=== PATIENT | male | born 1945 | race Caucasian/White ===

== ENCOUNTER 2019-11-10 22:13 | Inpatient (IN) | payer MEDICARE, OTHER ==
[~2019-11-10] VITALS: Ht 180.3 cm; Wt 99.0 kg
[2019-11-10] MEDS ORDERED: LIDOCAINE 2%/EPI 1:100,000 20 ML VIAL. ONE (22:18)
--- NOTE | 2019-11-11 00:28 | RAD ---
STUDY: CT head without contrast INDICATION: Fall. COMPARISON: None. TECHNIQUE: Axial CT imaging through the head without the use of intravenous contrast. Sagittal and coronal reformats were obtained. One or more of the following individualized dose reduction techniques were utilized for this examination: 1. Automated exposure control 2. Adjustment of the mA and/or kV according to patient size 3. Use of iterative reconstruction technique. FINDINGS: No acute intracranial hemorrhage. No mass effect, midline shift or hydrocephalus. White matter findings which are nonspecific but most likely on account of chronic microvascular ischemic change. Intracranial atherosclerotic calcifications. Parenchymal volume loss. Prominent scalp contusion with a degree of laceration centered within the left frontal scalp. Contusive injury extends downward to the superior orbital rim but there are no findings to suggest acute orbital injury. Nodular focus within the left parotid gland appears to represent an ectatic vessel as opposed to a mass. No depressed calvarial fracture. Paranasal sinus mucosal thickening without layering fluid. No mastoid air cells or middle ear opacification. IMPRESSION: 1. Prominent left frontal scalp contusion/laceration without an associated depressed calvarial fracture or acute intracranial hemorrhage. 2. Chronic/senescent findings as above. Electronically signed by: PAULINO JARVIS MD (11/11/2019 12:26 AM) [id number]
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
[2019-11-11 00:50] LABS: BASO % 1 % (0-3); EOS # 0.3 x10^3/uL (0.0-0.7); EOS % 5 % (0-3); HEMATOCRIT 44.5 % (39.0-53.0); HEMOGLOBIN 14.8 g/dL (13.0-17.5); LYMPH # 1.8 x10^3/uL (1.0-4.8); LYMPH % 29 % (24-48); MEAN CORPUSCULAR HEMOGLOBIN 33 pg (25-35); MEAN CORPUSCULAR HGB CONC 33 g/dL (31-37); MEAN CORPUSCULAR VOLUME 99 fL (79-100); MONO # 0.6 x10^3/uL (0.0-1.1); MONO % 10 % (0-9); NEUT # 3.5 x10^3/uL (1.8-7.7); NEUT % 56 % (31-73); PLATELET COUNT 141 x10^3/uL (140-400); RED BLOOD COUNT 4.52 x10^6/uL (4.30-5.70); WHITE BLOOD COUNT 6.2 x10^3/uL (4.0-11.0)
[2019-11-11] MEDS ORDERED: LIDOCAINE 2%/EPI 1:100,000 20 ML VIAL. INJ ONE (01:00)
[2019-11-11] MEDS ORDERED: IV NORMAL SALINE 1000ML BAG 1,000 ML IV ONE (01:00)
[2019-11-11] MEDS: oxyCODONE/APAP 10/325 1 TAB TABLET PO PRN ×3 (06:29→14:33)
[2019-11-11] MEDS ORDERED: ONDANSETRON PF 4 MG/2 ML VIAL. IVP PRN (06:30)
[2019-11-11 09:25] VITALS: BP 122/81
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
[2019-11-11] MEDS ORDERED: TERA10CA3 PO (11:11)
[2019-11-11 11:15] VITALS: BP_SYST 124; BP_SYST 128; BP_SYST 142; BP_DIAS 79; BP_DIAS 82; BP_DIAS 96
[2019-11-11] MEDS ORDERED: AMLO10TA8 PO (12:14)
[2019-11-11] MEDS ORDERED: PREG300C PO (12:14)
--- NOTE | 2019-11-11 12:34 | DISCH ---
DISCHARGE INSTRUCTIONS Condition on Discharge Condition on Discharge: Stable Activity After Discharge Activity Instructions for Disc: Avoid exertion, Bedrest today Lifting Instructions after Dis: No heavy lifting Driving Instructions after Dis: Do not drive Weight Bearing Status after Di: As tolerated Diet after Discharge Diet after Discharge: Cardiac Follow-Up Follow up with: PCP within 1 week of discharge ROXANNE HERNANDEZ MD Nov 11, 2019 12:33
--- NOTE | 2019-11-11 13:08 | NUR ---
reviewed discharge instructions with Juan Manuel. he is to resume home medications and follow up with PCP for stitch removal-verbalized understanding. instructed on dressing changes and dressings provided. verbalized understanding. awaiting ride saline lock removed
--- NOTE | 2019-11-11 15:07 | NUR ---
dismissed to home. friend picked up
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
== END 2019-11-11 15:10 | disposition home or self-care (01) | DRG 605 ==
LOC: ER 22:13 → ED HOLD 11-11 00:46 → 4 SOUTHEST 11-11 01:55
PROVIDERS: ADMIT Internal Medicine; ATTEND Internal Medicine
PROC: 0HQ0XZZ Repair Scalp Skin, External Approach (ICD-10-PCS; principal; 2019-11-11)
DX: S01.01XA Laceration without foreign body of scalp, initial encounter (principal); I10 Essential (primary) hypertension; I95.9 Hypotension, unspecified; F17.210 Nicotine dependence, cigarettes, uncomplicated; W01.0XXA Fall on same level from slipping, tripping and stumbling without subsequent striking against object, initial encounter; W10.9XXA Fall (on) (from) unspecified stairs and steps, initial encounter; Y93.01 Activity, walking, marching and hiking; G62.9 Polyneuropathy, unspecified; Z96.659 Presence of unspecified artificial knee joint; Z79.899 Other long term (current) drug therapy; Y92.89 Other specified places as the place of occurrence of the external cause; Y99.8 Other external cause status; Z20.828 Contact with and (suspected) exposure to other viral communicable diseases
CPT/HCPCS: 12013; 36415; 70450; 85025; 87426; 96360; 99285; 99406; J3490; J7030; G0378; U0003-CS